=== PATIENT | male | born 1945 | race Caucasian/White ===

== ENCOUNTER 2023-03-25 13:30 | Inpatient (IN) | payer MEDICARE, BC ==
[2023-03-25 14:27] LABS: Hematocrit 42.7 % (38.8-50.0); Hemoglobin 14.1 g/dL (13.5-17.5); Mean Corpuscular Hemoglobin 30.3 pg (27.0-33.0); Mean Corpuscular Volume 91.6 fl (81.2-95.1); Mean Platelet Volume 9.6 fl (7.4-10.4); Platelet Count 184 10x3/uL (150-450); Red Blood Cell (RBC) Count 4.66 10x6/uL (4.32-5.72); White Blood Cell (WBC) Count 6.8 10x3/uL (3.5-10.5)
[2023-03-25 14:59] LABS: Anion Gap 15 mmol/L (10-20); BUN (Urea Nitrogen) 14 mg/dL (8.4-25.7); Calc. Creatinine Clearance 0 mL/min (70-130); Calcium 8.9 mg/dL (7.8-10.44); Carbon Dioxide 25 mmol/L (23-31); Chloride 104 mmol/L (98-107); Estimated GFR 91; Glucose 94 mg/dL (83-110); Sodium 140 mmol/L (136-145)
[2023-03-28] MEDS ORDERED: Albumin 5% 500 ML ONE (06:18)
[2023-03-28] MEDS ORDERED: Lidocaine 1% MPF 2 ML VIAL ONE (06:21)
[2023-03-28] MEDS ORDERED: Midazolam HCl 2 mg/2 ml Vial ONE (06:31)
[2023-03-28] MEDS ORDERED: Fentanyl 250 MCG/5 ML VIAL ONE (06:31)
[2023-03-28] MEDS ORDERED: Heparin 10,000 UNITS/1 ML VIAL 30,000 UNITS in Sodium Chloride 0.9% 1,000 ML FS SCH (06:45)
[2023-03-28] MEDS ORDERED: CEFAZOLIN 2 GM VIAL ONE (07:21)
[2023-03-28] MEDS ORDERED: Sodium Chloride 0.9% 100 ML ONE (07:21)
[2023-03-28] MEDS ORDERED: Papaverine 60 MG/2 ML VIAL ONE (07:37)
[2023-03-28] MEDS ORDERED: Cardioplegic Soln 1,000 ML BAG ONE (07:37)
[2023-03-28] MEDS ORDERED: Lidocaine 1% PF 5 ML VIAL ONE (07:37)
[2023-03-28] MEDS ORDERED: Norepinephrine 4 MG/4 ML VIAL ONE (07:37)
[2023-03-28] MEDS ORDERED: Thrombin 5000 UNITS/5 ML VIAL ONE (07:37)
[2023-03-28] MEDS ORDERED: Vancomycin 1 GM VIAL ONE (07:37)
[2023-03-28] MEDS ORDERED: Potassium Chloride 60 MEQ/30 ML VIAL ONE (07:37)
[2023-03-28] MEDS ORDERED: Heparin 5,000 UNITS/ML VIAL ONE (07:37)
[2023-03-28] MEDS ORDERED: Aminocaproic Acid 5 GM/20 ML VIAL ONE (07:37)
[2023-03-28] MEDS ORDERED: Calcium Chloride 1 GM/10 ML Abboject SYRINGE ONE (07:37)
[2023-03-28] MEDS ORDERED: ePHEDrine Sulfate 50 MG/10 ML VIAL ONE (07:37)
[2023-03-28] MEDS ORDERED: Magnesium 5 GM/10 ML VIAL ONE (07:37)
[2023-03-28] MEDS ORDERED: Sodium Bicarb 50 MEQ/50 ML VIAL ONE (07:37)
[2023-03-28] MEDS ORDERED: PHENYLEPHRINE-NS 100 MCG/ML 10 ML SYRINGE ONE (07:37)
[2023-03-28] MEDS ORDERED: Lidocaine 2% PF 100 mg/5 ml Syringe ONE (07:37)
[2023-03-28] MEDS ORDERED: Mannitol 12.5 GM/50 ML ONE (07:37)
[2023-03-28] MEDS ORDERED: Protamine Sulfate 250 MG/25 ML VIAL ONE (07:37)
[2023-03-28] MEDS ORDERED: Heparin 30,000 units/30 ml VIAL ONE (07:37)
[2023-03-28] MEDS ORDERED: Rocuronium Bromide 10 MG/ML (10ML VIAL) ONE (07:37)
[2023-03-28] MEDS ORDERED: NOREPINEPHRINE 8 MG/250 ML-D5W 250 ML IVPB PRN (10:59)
[2023-03-28] MEDS ORDERED: niCARdipine 25 MG in Sodium Chloride 0.9% 250 ML 250 ML IVPB PRN (10:59)
[2023-03-28] MEDS ORDERED: Acetaminophen 325 MG TAB PO PRN (10:59)
[2023-03-28] MEDS ORDERED: HYDROcodone/Acetaminophen 5/325 mg Tablet PO PRN ×2 (10:59)
[2023-03-28] MEDS ORDERED: Morphine 2 MG/ML VIAL SLOW IVP PRN (10:59)
[2023-03-28] MEDS ORDERED: hydrALAZINE 20 MG/ML VIAL SLOW IVP PRN (10:59)
[2023-03-28] MEDS ORDERED: Bisacodyl 10 MG SUPP PR PRN (10:59)
[2023-03-28] MEDS ORDERED: Ondansetron PF 4 MG/2 ML Vial IVP PRN (10:59)
[2023-03-28] MEDS ORDERED: fentaNYL 50 mcg/mL 1 mL Vial SLOW IVP PRN ×2 (10:59)
[2023-03-28] MEDS ORDERED: Promethazine HCl 25 MG/ML VIAL IM PRN (10:59)
[2023-03-28] MEDS ORDERED: Post-Op Insulin Drip Protocol IVPB SCH (10:59)
[2023-03-28] MEDS ORDERED: Guaifenesin DM 100-10/5 ML UDCUP PO PRN (10:59)
[2023-03-28] MEDS ORDERED: Mag-Al 1200 mg/1200 mg/30 ML UDCUP PO PRN (10:59)
[2023-03-28] MEDS ORDERED: Bisacodyl 5 MG TAB PO PRN (10:59)
[2023-03-28] MEDS ORDERED: Hetastarch 6% 500 ML 500 ML IVPB PRN (10:59)
[2023-03-28] MEDS ORDERED: Ipratropium/Albuterol 3 ML NEB NEB PRN (10:59)
[2023-03-28] MEDS ORDERED: CEFAZOLIN 2 GM in Sodium Chloride 0.9% 100 ML IVPB SCH (11:00)
[2023-03-28] MEDS ORDERED: Dextrose 50% Abboject 50 ML SYRINGE SLOW IVP PRN (11:15)
[2023-03-28] MEDS ORDERED: Glucagon 1 MG/ML KIT SC PRN (11:15)
[2023-03-28] MEDS ORDERED: Dextrose 5% in Water 1,000 ML IV PRN (11:15)
[2023-03-28] MEDS ORDERED: HUMULIN R 100 UNITS in Sodium Chloride 0.9% 100 ML IVPB SCH (11:15)
[2023-03-28 11:18] LABS: Actual Bicarbonate (HCO3a) 18.5 mEq/L (22-28); Base Excess (BEa) -6.6 mEq/L (-2.0 to +3.0); CO2 Tension 35.7 mmHg (35.0-45.0); Carboxyhemoglobin (COHb) 0.4 gm% (0.0-3.0); Hematocrit-ABG 35 % (42.0-52.0); Hemoglobin (Hb) 11.8 g/dL (14.0-18.0); O2 Tension (PaO2), arterial 99.9 mmHg (> 70.0); Potassium - ABG Lab 3.21 mmol/L (3.70-5.30); pH, Arterial 7.333 (7.35-7.45)
[2023-03-28 11:23] LABS: ALV-art Gradient 283.275 mmHg (0-20); Puncture Site Arterial Line
[2023-03-28 11:25] LABS: #Basophils 0.1 thou/uL (0.0-0.2); #Eosinphils 0.3 thou/uL (0.0-0.7); #Monocytes 0.5 thou/uL (0.11-0.59); #Neutrophils 10.8 thou/uL (1.40-6.50); %Basophils 0.4 % (0.0-1.0); %Eosinophils 2.4 % (0.0-10.0); %Lymphocytes 13.5 % (21.0-51.0); %Monocytes 3.5 % (0.0-10.0); %Neutrophils 79.5 % (42.0-75.0); Hematocrit 35.5 % (42.0-52.0); Hemoglobin 11.5 g/dL (14.0-18.0); Mean Corpuscular HGB CONC 32.4 g/dL (32.0-36.0); Mean Corpuscular Hemoglobin 30.2 pg (27.0-31.0); Mean Corpuscular Volume 93.2 fl (78.0-98.0); Platelet Count 121 10x3/uL (130-400); Red Blood Cell (RBC) Count 3.81 mill/uL (4.70-6.10); White Blood Cell (WBC) Count 13.7 10x3/uL (4.8-10.8)
[2023-03-28 11:38] LABS: INR-International Normal Ratio 1.3; PTT 30.2 sec (22.9-36.1); Prothrombin Time 16.9 sec (12.0-14.7)
[2023-03-28] MEDS: Lactated Ringer's 1,000 ML IV SCH (11:40)
[2023-03-28] MEDS: Insulin Regular 300 UNITS/3 ML VIAL SC PRN ×3 (11:41→20:52)
[2023-03-28 11:47] LABS: Anion Gap 10 mmol/L (10-20); BUN (Urea Nitrogen) 15 mg/dL (8.4-25.7); Calc. Creatinine Clearance 123 mL/min (70-130); Calcium 8.2 mg/dL (7.8-10.44); Carbon Dioxide 25 mmol/L (23-31); Chloride 109 mmol/L (98-107); Estimated GFR 92; Glucose 139 mg/dL (83-110); Potassium 3.5 mmol/L (3.5-5.1); Sodium 140 mmol/L (136-145)
[2023-03-28] MEDS: DOPamine 400 MG/D5W 250 ML 250 ML IVPB PRN (13:11)
[2023-03-28] MEDS: Ketorolac Tromethamine 30 MG/ML VIAL IVP SCH ×2 (13:12→19:13)
[2023-03-28 13:32] LABS: Actual Bicarbonate (HCO3a) 18.8 mEq/L (22-28); Base Excess (BEa) -4.9 mEq/L (-2.0 to +3.0); CO2 Tension 31.2 mmHg (35.0-45.0); Calcium, Ionized (arterial) 1.15 mmol/L (1.12-1.30); Carboxyhemoglobin (COHb) 0.3 gm% (0.0-3.0); Hematocrit-ABG 37 % (42.0-52.0); Hemoglobin (Hb) 12.7 g/dL (14.0-18.0); O2 Tension (PaO2), arterial 94.9 mmHg (> 70.0); Potassium - ABG Lab 4.05 mmol/L (3.70-5.30); pH, Arterial 7.399 (7.35-7.45)
[2023-03-28 14:33] LABS: Puncture Site Arterial Line
[2023-03-28] MEDS: CEFAZOLIN 2 GM in Sodium Chloride 0.9% 100 ML IVPB SCH (15:37)
[2023-03-28 16:59] LABS: Hematocrit 34.3 % (42.0-52.0); Hemoglobin 11.2 g/dL (14.0-18.0)
[2023-03-28 17:17] LABS: Potassium 3.7 mmol/L (3.5-5.1)
[2023-03-28] MEDS: Famotidine/PF 20 mg/2ml Vial SLOW IVP SCH (20:51)
[2023-03-28] MEDS ORDERED: Simvastatin 40 MG TAB PO SCH (21:00)
[2023-03-28] MEDS ORDERED: Simvastatin 10 MG TAB PO SCH (21:00)
[2023-03-29] MEDS: Ketorolac Tromethamine 30 MG/ML VIAL IVP SCH ×4 (00:11→17:25)
[2023-03-29] MEDS: Potassium Chloride 20 MEQ/100 ML PREMIX BAG IVPB PRN ×2 (00:11→08:28)
[2023-03-29] MEDS: CEFAZOLIN 2 GM in Sodium Chloride 0.9% 100 ML IVPB SCH ×2 (00:11→06:08)
[2023-03-29] MEDS: Lactated Ringer's 1,000 ML IV SCH ×2 (00:27→14:27)
[2023-03-29] MEDS: Insulin Regular 300 UNITS/3 ML VIAL SC PRN ×2 (00:46→06:09)
[2023-03-29] MEDS: DOPamine 400 MG/D5W 250 ML 250 ML IVPB PRN (06:07)
[2023-03-29 06:31] LABS: #Eosinphils 0.1 thou/uL (0.0-0.7); #Monocytes 0.9 thou/uL (0.11-0.59); %Basophils 0.4 % (0.0-1.0); %Eosinophils 0.9 % (0.0-10.0); %Lymphocytes 9.6 % (21.0-51.0); %Monocytes 8.1 % (0.0-10.0); %Neutrophils 80.6 % (42.0-75.0); Hematocrit 31.7 % (42.0-52.0); Hemoglobin 10.3 g/dL (14.0-18.0); Mean Corpuscular HGB CONC 32.5 g/dL (32.0-36.0); Mean Corpuscular Hemoglobin 30.4 pg (27.0-31.0); Mean Corpuscular Volume 93.5 fl (78.0-98.0); Mean Platelet Volume 9.7 fL (7.4-10.4); Platelet Count 121 10x3/uL (130-400); RBC Distribution Width 13.1 % (11.5-14.5); Red Blood Cell (RBC) Count 3.39 mill/uL (4.70-6.10); White Blood Cell (WBC) Count 11.2 10x3/uL (4.8-10.8)
[2023-03-29 07:26] LABS: Chloride 107 mmol/L (98-107); Potassium 3.5 mmol/L (3.5-5.1); Sodium 139 mmol/L (136-145)
[2023-03-29 07:27] LABS: Calcium 8.3 mg/dL (7.8-10.44); Glucose 135 mg/dL (83-110)
[2023-03-29 07:29] LABS: Anion Gap 12 mmol/L (10-20); Carbon Dioxide 24 mmol/L (23-31)
[2023-03-29 07:30] LABS: Calc. Creatinine Clearance 113 mL/min (70-130); Estimated GFR 90
[2023-03-29 07:31] LABS: BUN (Urea Nitrogen) 15 mg/dL (8.4-25.7)
[2023-03-29] MEDS: Polyethylene Glycol 3350 17 GM Packet PO SCH (08:27)
[2023-03-29] MEDS: Famotidine/PF 20 mg/2ml Vial SLOW IVP SCH ×2 (08:27→21:06)
[2023-03-29] MEDS: Magnesium 2 GM/50 ML(in water) 2 GM in Premix Bag 1 BAG IVPB SCH (08:27)
[2023-03-29] MEDS: Aspirin 325 MG TAB PO SCH (08:28)
[2023-03-29] MEDS ORDERED: Insulin Glargine 30 UNITS/0.3 ML VIAL SC PRN (11:10)
[2023-03-29] MEDS: Atorvastatin Calcium 20 MG TAB PO SCH (21:05)
[2023-03-30] MEDS: Ketorolac Tromethamine 30 MG/ML VIAL IVP SCH ×4 (00:14→17:22)
[2023-03-30 04:35] LABS: #Eosinphils 0.2 thou/uL (0.0-0.7); #Monocytes 0.9 thou/uL (0.11-0.59); #Neutrophils 8.2 thou/uL (1.40-6.50); %Basophils 0.4 % (0.0-1.0); %Eosinophils 1.9 % (0.0-10.0); %Lymphocytes 13.1 % (21.0-51.0); %Monocytes 8.5 % (0.0-10.0); %Neutrophils 75.5 % (42.0-75.0); Hematocrit 28.3 % (42.0-52.0); Hemoglobin 9.3 g/dL (14.0-18.0); Mean Corpuscular HGB CONC 32.9 g/dL (32.0-36.0); Mean Corpuscular Hemoglobin 30.8 pg (27.0-31.0); Mean Corpuscular Volume 93.7 fl (78.0-98.0); RBC Distribution Width 13.3 % (11.5-14.5); Red Blood Cell (RBC) Count 3.02 mill/uL (4.70-6.10); White Blood Cell (WBC) Count 10.9 10x3/uL (4.8-10.8)
[2023-03-30 04:50] LABS: Platelet Count 107 10x3/uL (130-400)
[2023-03-30 04:56] LABS: Anion Gap 10 mmol/L (10-20); BUN (Urea Nitrogen) 16 mg/dL (8.4-25.7); Calc. Creatinine Clearance 124 mL/min (70-130); Calcium 8.2 mg/dL (7.8-10.44); Carbon Dioxide 26 mmol/L (23-31); Chloride 107 mmol/L (98-107); Estimated GFR 92; Glucose 115 mg/dL (83-110); Potassium 3.6 mmol/L (3.5-5.1); Sodium 139 mmol/L (136-145)
[2023-03-30 06:10] VITALS: BMI 34.8
[2023-03-30] MEDS: Aspirin 325 MG TAB PO SCH (07:56)
[2023-03-30] MEDS: Polyethylene Glycol 3350 17 GM Packet PO SCH (07:57)
[2023-03-30] MEDS: Famotidine/PF 20 mg/2ml Vial SLOW IVP SCH (07:57)
[2023-03-30] MEDS: Magnesium 2 GM/50 ML(in water) 2 GM in Premix Bag 1 BAG IVPB SCH (07:57)
[2023-03-30 11:45] LABS: Actual Bicarbonate (HCO3a) 24.9 mEq/L (22-28); Analyzer IN Cardio OR; Base Excess (BEa) 0.6 mEq/L (-2.0 to +3.0); CO2 Tension 39.1 mmHg (35.0-45.0); Calcium, Ionized (arterial) 1.13 mmol/L (1.12-1.30); Carboxyhemoglobin (COHb) 0.8 gm% (0.0-3.0); Hematocrit-ABG 40 % (42.0-52.0); Hemoglobin (Hb) 13.6 g/dL (14.0-18.0); O2 Tension (PaO2), arterial 94.8 mmHg (> 70.0); Potassium - ABG Lab 3.65 mmol/L (3.70-5.30); pH, Arterial 7.422 (7.35-7.45)
[2023-03-30 11:46] LABS: Actual Bicarbonate (HCO3a) 25.7 mEq/L (22-28); Analyzer IN Cardio OR; Base Excess (BEa) -0.2 mEq/L (-2.0 to +3.0); CO2 Tension 46.9 mmHg (35.0-45.0); Calcium, Ionized (arterial) 1.13 mmol/L (1.12-1.30); Carboxyhemoglobin (COHb) 0.6 gm% (0.0-3.0); Hematocrit-ABG 39 % (42.0-52.0); Hemoglobin (Hb) 13.2 g/dL (14.0-18.0); O2 Tension (PaO2), arterial 106.7 mmHg (> 70.0); Potassium - ABG Lab 3.67 mmol/L (3.70-5.30); pH, Arterial 7.357 (7.35-7.45)
[2023-03-30 11:46] LABS: Actual Bicarbonate (HCO3a) 24.1 mEq/L (22-28); Analyzer IN Cardio OR; Base Excess (BEa) 0.1 mEq/L (-2.0 to +3.0); CO2 Tension 36.4 mmHg (35.0-45.0); Calcium, Ionized (arterial) 1.02 mmol/L (1.12-1.30); Carboxyhemoglobin (COHb) 0.3 gm% (0.0-3.0); Hematocrit-ABG 30 % (42.0-52.0); Hemoglobin (Hb) 10.2 g/dL (14.0-18.0); O2 Tension (PaO2), arterial 416.1 mmHg (> 70.0); Potassium - ABG Lab 4.15 mmol/L (3.70-5.30); pH, Arterial 7.438 (7.35-7.45)
[2023-03-30 11:47] LABS: Actual Bicarbonate (HCO3a) 23.9 mEq/L (22-28); Analyzer IN Cardio OR; Base Excess (BEa) 0.4 mEq/L (-2.0 to +3.0); CO2 Tension 34.1 mmHg (35.0-45.0); Calcium, Ionized (arterial) 1.27 mmol/L (1.12-1.30); Carboxyhemoglobin (COHb) 0.3 gm% (0.0-3.0); Hematocrit-ABG 28 % (42.0-52.0); Hemoglobin (Hb) 9.5 g/dL (14.0-18.0); O2 Tension (PaO2), arterial 379.9 mmHg (> 70.0); Potassium - ABG Lab 4.19 mmol/L (3.70-5.30); pH, Arterial 7.463 (7.35-7.45)
[2023-03-30 11:47] LABS: Analyzer IN Cardio OR; Base Excess -0.7 mEq/L (-2.0 to +3.0); Calcium, Ionized (venous) 1.06 mmol/L (1.16-1.32); Chloride (VBG) 105 mmol/L (98-106); Hematocrit-VBG 30 % (42.0-52.0); Hemoglobin (Hb) 10.3 g/dL (12.6-17.4); Potassium (VBG) 4.05 mmol/L (3.70-5.30)
[2023-03-30 11:47] LABS: Actual Bicarbonate (HCO3a) 24.3 mEq/L (22-28); Analyzer IN Cardio OR; Base Excess (BEa) -1.7 mEq/L (-2.0 to +3.0); CO2 Tension 47.1 mmHg (35.0-45.0); Calcium, Ionized (arterial) 1.27 mmol/L (1.12-1.30); Carboxyhemoglobin (COHb) 0.3 gm% (0.0-3.0); Hematocrit-ABG 28 % (42.0-52.0); Hemoglobin (Hb) 9.4 g/dL (14.0-18.0); O2 Tension (PaO2), arterial 177.6 mmHg (> 70.0); pH, Arterial 7.331 (7.35-7.45)
[2023-03-30 11:48] LABS: Actual Bicarbonate (HCO3a) 20.9 mEq/L (22-28); Analyzer IN Cardio OR; CO2 Tension 41.8 mmHg (35.0-45.0); Calcium, Ionized (arterial) 1.16 mmol/L (1.12-1.30); Carboxyhemoglobin (COHb) 0.4 gm% (0.0-3.0); Hematocrit-ABG 35 % (42.0-52.0); O2 Tension (PaO2), arterial 93.4 mmHg (> 70.0); Potassium - ABG Lab 3.56 mmol/L (3.70-5.30); pH, Arterial 7.316 (7.35-7.45)
[2023-03-30 11:48] LABS: Puncture Site Arterial Line
[2023-03-30 11:48] LABS: Puncture Site Arterial Line
[2023-03-30 11:49] LABS: Puncture Site Arterial Line
[2023-03-30 11:50] LABS: Puncture Site Arterial Line
[2023-03-30 11:50] LABS: Puncture Site Arterial Line
[2023-03-30 11:51] LABS: Puncture Site Arterial Line
[2023-03-30 11:54] LABS: Actual Bicarbonate (HCO3v) 23.6 mEq/L (22-28); Analyzer IN Cardio OR; Base Excess -1.3 mEq/L (-2.0 to +3.0); Calcium, Ionized (venous) 1.06 mmol/L (1.16-1.32); Chloride (VBG) 104 mmol/L (98-106); Hematocrit-VBG 31 % (42.0-52.0); Hemoglobin (Hb) 10.7 g/dL (12.6-17.4); Potassium (VBG) 4.05 mmol/L (3.70-5.30); Sodium 131.5 mmol/L (133-146); pH (venous) 7.388 (7.32-7.43)
[2023-03-30] MEDS ORDERED: Mineral Oil ENEMA PR PRN (18:41)
[2023-03-30] MEDS ORDERED: Nitroglycerin 0.4 MG TAB (25 Tab Bottle) SL PRN (18:41)
[2023-03-30] MEDS ORDERED: Simethicone Chewable 80 MG TAB PO PRN (18:41)
[2023-03-30] MEDS ORDERED: Fleet Saline Enema 133 ML BOT PR PRN (18:41)
[2023-03-30] MEDS ORDERED: Artificial Tear Sol 15 ML BOT EA EYE PRN (18:41)
[2023-03-30] MEDS: Atorvastatin Calcium 20 MG TAB PO SCH (20:13)
[2023-03-30] MEDS: Famotidine 20 MG TAB PO SCH (20:13)
[2023-03-31 04:09] LABS: #Basophils 0.1 thou/uL (0.0-0.2); #Eosinphils 0.2 thou/uL (0.0-0.7); #Monocytes 1.2 thou/uL (0.11-0.59); #Neutrophils 8.6 thou/uL (1.40-6.50); %Basophils 0.5 % (0.0-1.0); %Lymphocytes 11.6 % (21.0-51.0); %Monocytes 10.6 % (0.0-10.0); %Neutrophils 74.5 % (42.0-75.0); Hematocrit 30.4 % (42.0-52.0); Mean Corpuscular HGB CONC 32.9 g/dL (32.0-36.0); Mean Corpuscular Hemoglobin 30.3 pg (27.0-31.0); Mean Corpuscular Volume 92.1 fl (78.0-98.0); Platelet Count 125 10x3/uL (130-400); RBC Distribution Width 13.3 % (11.5-14.5); White Blood Cell (WBC) Count 11.6 10x3/uL (4.8-10.8)
[2023-03-31 04:35] LABS: Anion Gap 10 mmol/L (10-20); BUN (Urea Nitrogen) 16 mg/dL (8.4-25.7); Calc. Creatinine Clearance 139 mL/min (70-130); Calcium 8.2 mg/dL (7.8-10.44); Carbon Dioxide 26 mmol/L (23-31); Chloride 104 mmol/L (98-107); Estimated GFR 95; Glucose 115 mg/dL (83-110); Potassium 3.7 mmol/L (3.5-5.1); Sodium 136 mmol/L (136-145)
[2023-03-31] MEDS: Lisinopril 2.5 MG TAB PO SCH (08:06)
[2023-03-31] MEDS: Polyethylene Glycol 3350 17 GM Packet PO SCH (08:06)
[2023-03-31] MEDS: Aspirin 325 mg Enteric Coated Tablet PO SCH (08:06)
[2023-03-31] MEDS: Famotidine 20 MG TAB PO SCH ×2 (08:06→19:29)
[2023-03-31] MEDS: Potassium Chloride 10 MEQ TAB PO SCH (08:06)
[2023-03-31] MEDS: Furosemide 40 MG TAB PO SCH (08:06)
[2023-03-31] MEDS ORDERED: Atorvastatin Calcium 10 MG TAB PO SCH ×3 (09:00→21:00)
[2023-04-01] MEDS ORDERED: Carvedilol 3.125 MG TAB PO SCH (08:00)
[2023-04-01] MEDS: Potassium Chloride 10 MEQ TAB PO SCH (08:14)
[2023-04-01] MEDS: Polyethylene Glycol 3350 17 GM Packet PO SCH (08:15)
[2023-04-01] MEDS: Aspirin 325 mg Enteric Coated Tablet PO SCH (08:15)
[2023-04-01] MEDS: Furosemide 40 MG TAB PO SCH (08:15)
[2023-04-01] MEDS: Famotidine 20 MG TAB PO SCH (08:15)
[2023-04-01] MEDS: Lisinopril 2.5 MG TAB PO SCH (08:15)
[2023-04-01 11:51] VITALS: TEMP 98.3
[2023-04-01 13:16] VITALS: BP 152/85
[2023-04-01] MEDS ORDERED: Atorvastatin Calcium 20 MG TAB PO SCH (21:00)
== END 2023-04-01 14:39 | disposition home or self-care (01) | DRG 236 ==
LOC: SURG A 03-28 05:57 → CCU 03-28 11:19 → 2NO 03-31 11:17
PROVIDERS: ADMIT Thoracic Surgery (Cardiothoracic Vascular Surgery); ATTEND Thoracic Surgery (Cardiothoracic Vascular Surgery)
PROC: 02100Z9 Bypass Coronary Artery, One Artery from Left Internal Mammary, Open Approach (ICD-10-PCS; principal; 2023-03-28)
PROC: 021109W Bypass Coronary Artery, Two Arteries from Aorta with Autologous Venous Tissue, Open Approach (ICD-10-PCS; 2023-03-28)
PROC: 06BQ3ZZ Excision of Left Saphenous Vein, Percutaneous Approach (ICD-10-PCS; 2023-03-28)
PROC: 02L70CK Occlusion of Left Atrial Appendage with Extraluminal Device, Open Approach (ICD-10-PCS; 2023-03-28)
PROC: 4A133R1 Monitoring of Arterial Saturation, Peripheral, Percutaneous Approach (ICD-10-PCS; 2023-03-28)
PROC: 30233J1 Transfusion of Nonautologous Serum Albumin into Peripheral Vein, Percutaneous Approach (ICD-10-PCS; 2023-03-28)
DX: I25.10 Atherosclerotic heart disease of native coronary artery without angina pectoris (principal); I48.19 Other persistent atrial fibrillation; I10 Essential (primary) hypertension; Z90.49 Acquired absence of other specified parts of digestive tract; E78.00 Pure hypercholesterolemia, unspecified; E66.9 Obesity, unspecified; G47.33 Obstructive sleep apnea (adult) (pediatric); Z79.899 Other long term (current) drug therapy; Z68.35 Body mass index [BMI] 35.0-35.9, adult
CPT/HCPCS: 36416; 36430; 71045; 80048; 82805; 85025; 85027; 85610; 85730; 86850; 86900; 86901; 93005; 93010; 93798; 94002; A4311; C1713; C1751; C1776; J0360; J1265; J1642; J1644; J1815; J1885; J2001; J2150; J2250; J2405; J2440; J2720; J3010; J3370; J3475; J3480; J3490; J7120; P9045; S0017; S0028

== ENCOUNTER 2023-08-10 10:46 | Outpatient (CLI) | payer MEDICARE, BC ==
[2023-08-10 08:50] LABS: #Basophils 0.1 10x3/uL (0.0-0.2); #Eosinphils 0.6 10x3/uL (0.0-0.5); #Monocytes 0.7 10x3/uL (0.0-1.1); #Neutrophils 4.3 10x3/uL (1.5-8.4); %Basophils 1.2 % (0.0-2.0); %Eosinophils 7.6 % (0.0-6.0); %Lymphocytes 22.9 % (18.0-47.0); Hemoglobin 13.1 g/dL (13.5-17.5); Mean Corpuscular HGB CONC 32.8 g/dL (32.0-36.0); Mean Corpuscular Hemoglobin 28.1 pg (27.0-33.0); Mean Corpuscular Volume 85.7 fl (81.2-95.1); Mean Platelet Volume 9.2 fl (7.4-10.4); Platelet Count 209 10x3/uL (150-450); RBC Distribution Width 14.9 % (11.5-14.5); Red Blood Cell (RBC) Count 4.67 10x6/uL (4.32-5.72); White Blood Cell (WBC) Count 7.3 10x3/uL (3.5-10.5)
[2023-08-10 09:31] LABS: Anion Gap 15 mmol/L (10-20); BUN (Urea Nitrogen) 10 mg/dL (8.4-25.7); Calc. Creatinine Clearance 0 mL/min (70-130); Calcium 9.1 mg/dL (7.8-10.44); Carbon Dioxide 25 mmol/L (23-31); Chloride 103 mmol/L (98-107); Estimated GFR 91; Glucose 105 mg/dL (83-110); Potassium 3.9 mmol/L (3.5-5.1); Sodium 139 mmol/L (136-145)
== END 2023-08-10 10:47 | disposition home or self-care (01) ==
LOC: LABBT 10:46
PROVIDERS: ATTEND Surgery
DX: Z01.818 Encounter for other preprocedural examination (principal); K40.90 Unilateral inguinal hernia, without obstruction or gangrene, not specified as recurrent
CPT/HCPCS: 80048; 85025; 93005; 93010

== ENCOUNTER 2023-08-17 06:07 | Day surgery (SDC) | payer MEDICARE, BC ==
[2023-08-10 08:17] VITALS: BMI 30.4
[2023-08-17] MEDS ORDERED: Lidocaine 1% MPF 2 ML VIAL ONE (06:55)
[2023-08-17] MEDS ORDERED: Rocuronium Bromide 10 MG/ML (10ML VIAL) ONE (06:55)
[2023-08-17] MEDS ORDERED: EPINEPHrine 1 MG/ML VIAL ONE (06:55)
[2023-08-17] MEDS ORDERED: Lidocaine 1% PF 5 ML VIAL ONE (06:55)
[2023-08-17] MEDS ORDERED: PROPOFOL 20 ML ONE (06:55)
[2023-08-17] MEDS ORDERED: fentaNYL PF 100 MCG/2 ML SYRINGE ONE (06:55)
[2023-08-17] MEDS ORDERED: Bupivacaine 0.25% HCL 30 ML VIAL ONE (06:58)
[2023-08-17] MEDS ORDERED: Sodium Chloride 0.9% 100 ML ONE (07:24)
[2023-08-17] MEDS ORDERED: CEFAZOLIN 2 GM VIAL ONE (07:24)
[2023-08-17] MEDS ORDERED: PHENYLEPHRINE-NS 100 MCG/ML 10 ML SYRINGE ONE ×2 (07:43→08:27)
[2023-08-17] MEDS ORDERED: SUGAMMADEX SODIUM 200 MG/2 ML VIAL ONE (08:27)
[2023-08-17] MEDS ORDERED: Ondansetron PF 4 MG/2 ML Vial ONE (08:31)
[2023-08-17] MEDS ORDERED: HYDROcodone/Acetaminophen 5/325 mg Tablet ONE (09:53)
== END 2023-08-17 10:31 | disposition home or self-care (01) ==
LOC: SDC 06:07
PROVIDERS: ATTEND Surgery
PROC: 0YU54JZ Supplement Right Inguinal Region with Synthetic Substitute, Percutaneous Endoscopic Approach (ICD-10-PCS; principal; 2023-08-17)
PROC: 07BH0ZZ Excision of Right Inguinal Lymphatic, Open Approach (ICD-10-PCS; 2023-08-17)
DX: K40.90 Unilateral inguinal hernia, without obstruction or gangrene, not specified as recurrent (principal); R59.0 Localized enlarged lymph nodes; C43.59 Malignant melanoma of other part of trunk; E78.00 Pure hypercholesterolemia, unspecified; I10 Essential (primary) hypertension; G47.33 Obstructive sleep apnea (adult) (pediatric); I48.20 Chronic atrial fibrillation, unspecified; E66.9 Obesity, unspecified; Z68.30 Body mass index [BMI] 30.0-30.9, adult; Z90.49 Acquired absence of other specified parts of digestive tract; Z79.82 Long term (current) use of aspirin; Z79.899 Other long term (current) drug therapy; Z95.1 Presence of aortocoronary bypass graft
CPT/HCPCS: 38531; 49650; A4314; C1781; J0171; 88184; 88185; 88189; 88307; 88341; 88342; J0665; J2405; J2704; J3490